=== PATIENT | female | born 1985 | race African-American/Black ===

== ENCOUNTER 2021-07-22 14:22 | Emergency (ER) | payer SELFPAY ==
[2021-07-22 15:00] VITALS: BP 128/86; PULSE 82; TEMP 98.2; BMI 26.6
== END 2021-07-22 15:13 | disposition home or self-care (01) ==
LOC: JERFT 14:22 → JER 14:22 → JERFT 15:13
DX: R19.15 Other abnormal bowel sounds (principal)
CPT/HCPCS: 0241U-QW; 99281-25

== ENCOUNTER 2022-09-22 13:31 | Emergency (ER) | payer OTHER ==
[2022-09-22 14:00] VITALS: BP 124/63; PULSE 84; RESP 17; TEMP 98.2; BMI 26.2
== END 2022-09-22 15:28 | disposition home or self-care (01) ==
LOC: JER 13:31
DX: H57.89 Other specified disorders of eye and adnexa (principal); R09.89 Other specified symptoms and signs involving the circulatory and respiratory systems; R05.9 Cough, unspecified; B34.9 Viral infection, unspecified; R50.9 Fever, unspecified; H04.203 Unspecified epiphora, bilateral
CPT/HCPCS: 99283-25